=== PATIENT | male | born 1945 | race Caucasian/White ===

== ENCOUNTER 2020-09-25 07:26 | Day surgery (SDC) | payer MEDICARE, BC ==
[~2020-09-25] VITALS: Ht 185.4 cm; Wt 95.6 kg
[~2020-09-25 07:26] MED LIST: ACYC400 PO; ALLO100 PO; AMLO5 PO; AMLODIPINE BESYL5 MG PO; ASPI81CH PO; ASPIR 8181 M1 PO; BLOOD PRESSURE MEDS; CALCAVITD PO; CALCIUM PO; CHEMO; CYCLOPHOSPHAMIDE PO; ERGO400 PO; FISH OIL 1,2001 EAC1 PO; FOLI400 PO; FURO40 PO; GLIP5 PO; METTREX2.5 PO; NYSTATIN; OMEP40CA12 PO; PANT40 PO; PRED20 PO; SIMV10 PO; SODCHL1 PO; SULTRIDS PO; SYMBACORT INH; ZOCOR20 MG PO; ZOLP10 PO; norvasc PO
[2020-09-25] MEDS ORDERED: CALCIUM 600 +1 EA11 PO (07:57)
--- NOTE | 2020-09-25 08:00 | NUR ---
History, Chart, Medications and Allergies reviewed before start of procedure. Patient confirms NPO status and agrees with scheduled surgery. Patient States Post-Procedure ride home has been arranged.
--- NOTE | 2020-09-25 09:08 | NUR ---
09/25/20 0908 Isabel Ortiz History, Chart, Medications and Allergies reviewed before start of procedure. Patient confirms NPO status and agrees with scheduled surgery. 3-LEAD EKG REVIEWED WITH PHYSICIAN PRIOR TO START OF PROCEDURE. MONITOR INTACT WITH CONTINUOUS PULSE OXIMETRY AND INTERMITTENT BP. PATIENT DETERMINED TO BE ASA APPROPRIATE FOR PROPOFOL SEDATION PRIOR TO START OF PROCEDURE BY . Bite Block Placed and removed at end of case.
--- NOTE | 2020-09-25 09:37 | NUR ---
REPORT FROM DOMI SOARES RN. PATIENT REQUESTING TO GO HOME.
--- NOTE | 2020-09-25 09:54 | NUR ---
Patient up to Ambulate independently. Gait steady. Discharge instructions reviewed with patient. Patient verbalizes understanding. Copy given to patient to take home. Patient States Post-Procedure ride home has been arranged. Discharged via wheelchair to private car for ride home. ALL BELONGINGS INCLUDING HEARING AIDS AND GLASSES RETURNED TO PATIENT.
== END 2020-09-25 22:41 | disposition home or self-care (01) ==
LOC: ORSCMMR 07:26 → ORD 08:30 → ORSCMMR 22:41
PROVIDERS: Internal Medicine Gastroenterology
PROC: 0DB78ZX Excision of Stomach, Pylorus, Via Natural or Artificial Opening Endoscopic, Diagnostic (ICD-10-PCS; principal; 2020-09-25 08:30)
PROC: 0DB48ZX Excision of Esophagogastric Junction, Via Natural or Artificial Opening Endoscopic, Diagnostic (ICD-10-PCS; principal; 2020-09-25 08:30)
PROC: 0DB98ZX Excision of Duodenum, Via Natural or Artificial Opening Endoscopic, Diagnostic (ICD-10-PCS; principal; 2020-09-25 08:30)
DX: R10.13 Epigastric pain (principal); K21.9 Gastro-esophageal reflux disease without esophagitis; K29.80 Duodenitis without bleeding; R10.12 Left upper quadrant pain; I10 Essential (primary) hypertension; E78.00 Pure hypercholesterolemia, unspecified; Z86.73 Personal history of transient ischemic attack (TIA), and cerebral infarction without residual deficits; Z79.899 Other long term (current) drug therapy; Z79.82 Long term (current) use of aspirin
CPT/HCPCS: 88305; 88312; 88342; A9270; J2704; J7120

== ENCOUNTER 2021-04-29 14:17 | Emergency (ER) | payer MEDICARE, BC ==
[~2021-04-29] VITALS: Ht 185.4 cm; Wt 95.2 kg
[~2021-04-29 14:17] MED LIST changes: +CALCIUM 600 +1 EA11 PO
[2021-04-29 15:15] LABS: BASOPHILS ABSOLUTE AUTO 0.08 K/mm3 (0.00-0.23); BASOPHILS PERCENT AUTO 1 % (0-2); EOSINOPHILS ABSOLUTE AUTO 0.25 K/mm3 (0.00-0.68); EOSINOPHILS PERCENT AUTO 3 % (0-6); Hematocrit 43.9 % (37.0-53.0); Hemoglobin 14.8 g/dL (13.5-17.5); IMMATURE GRAN ABSOLUTE AUTO 0.03 K/mm3 (0.00-0.10); IMMATURE GRAN PERCENT AUTO 0 % (0-1); LYMPHOCYTES ABSOLUTE AUTO 2.16 K/mm3 (0.84-5.20); LYMPHOCYTES PERCENT AUTO 27 % (21-46); MONOCYTES ABSOLUTE AUTO 0.55 K/mm3 (0.16-1.47); MONOCYTES PERCENT AUTO 7 % (4-13); Mean Corpuscular HGB 29.7 pg (26.0-34.0); Mean Corpuscular HGB Conc 33.7 g/dL (31.5-36.5); Mean Corpuscular Volume 88 fL (80-100); Mean Platelet Volume 9.5 fL (9.1-12.4); NEUTROPHILS ABSOLUTE AUTO 4.87 K/mm3 (1.96-9.15); NEUTROPHILS PERCENT AUTO 61 % (41-73); Platelet Count 250 K/mm3 (150-400); RDW Coefficient Variation 13.3 % (11.7-14.2); RDW Standard Deviation 42.9 fL (35.1-46.3); Red Blood Cell Count 4.99 M/mm3 (4.30-5.90); White Blood Cell Count 7.94 K/mm3 (4.00-11.30)
[2021-04-29 15:28] LABS: Alanine Aminotransfer (ALT/SGP 32 U/L (12-78); Albumin, Blood 3.4 g/dL (3.4-5.0); Albumin/Globulin Ratio 0.9 (0.8-1.8); Alk Phos 66 U/L (50-136); Anion Gap 4 mmol/L (6-16); Aspartate Aminotrans (AST/SGOT 25 U/L (12-37); Bilirubin, Total 0.7 mg/dL (0.1-1.0); Blood Urea Nitrogen 40 mg/dL (8-24); Bun/Creatinine Ratio 17.9 (12.0-20.0); CO2, Blood 28 mmol/L (21-32); Calcium, Blood 9.7 mg/dL (8.5-10.1); Chloride, Blood 109 mmol/L (98-108); Creatinine, Blood 2.23 mg/dL (0.60-1.20); Globulin, Blood 3.6 g/dL (2.2-4.0); Glomerular Filtration Rate 29 (60-); Glucose, Blood 122 mg/dL (70-99); Potassium, Blood 4.5 mmol/L (3.5-5.5); Sodium, Blood 141 mmol/L (136-145); Troponin I <0.015 ng/mL (0.000-0.040)
[2021-04-29] MEDS ORDERED: FAMO20 PO (20:34)
== END 2021-04-29 20:38 | disposition home or self-care (01) ==
LOC: ER 14:17
PROVIDERS: Emergency Medicine
DX: R07.9 Chest pain, unspecified (principal); Z79.899 Other long term (current) drug therapy; Z79.82 Long term (current) use of aspirin; N18.4 Chronic kidney disease, stage 4 (severe); Z87.891 Personal history of nicotine dependence; M06.9 Rheumatoid arthritis, unspecified
CPT/HCPCS: 71045; 80053; 83690; 83880; 84484; 85025; 93005; 93010; 99285-25; A9270

== ENCOUNTER 2023-03-03 11:21 | Observation (INO) | payer MEDICARE, BC ==
[~2023-03-03] VITALS: Ht 185.4 cm; Wt 100.0 kg
[~2023-03-03 11:21] MED LIST changes: +FAMO20 PO
[2023-03-03 12:07] LABS: BASOPHILS ABSOLUTE AUTO 0.06 K/mm3 (0.00-0.23); BASOPHILS PERCENT AUTO 1 % (0-2); EOSINOPHILS ABSOLUTE AUTO 0.28 K/mm3 (0.00-0.68); EOSINOPHILS PERCENT AUTO 4 % (0-6); Hematocrit 44.4 % (37.0-53.0); IMMATURE GRAN ABSOLUTE AUTO 0.01 K/mm3 (0.00-0.10); IMMATURE GRAN PERCENT AUTO 0 % (0-1); LYMPHOCYTES ABSOLUTE AUTO 1.76 K/mm3 (0.84-5.20); LYMPHOCYTES PERCENT AUTO 28 % (21-46); MONOCYTES ABSOLUTE AUTO 0.43 K/mm3 (0.16-1.47); MONOCYTES PERCENT AUTO 7 % (4-13); Mean Corpuscular HGB 29.9 pg (26.0-34.0); Mean Corpuscular HGB Conc 33.8 g/dL (31.5-36.5); Mean Corpuscular Volume 88 fL (80-100); Mean Platelet Volume 9.4 fL (9.1-12.4); NEUTROPHILS ABSOLUTE AUTO 3.82 K/mm3 (1.96-9.15); NEUTROPHILS PERCENT AUTO 60 % (41-73); Platelet Count 201 K/mm3 (150-400); RDW Coefficient Variation 13.3 % (11.7-14.2); RDW Standard Deviation 43.1 fL (35.1-46.3); Red Blood Cell Count 5.02 M/mm3 (4.30-5.90); White Blood Cell Count 6.36 K/mm3 (4.00-11.30)
[2023-03-03 12:25] LABS: Albumin/Globulin Ratio 1.1 (0.8-1.8); Bilirubin, Total 1.1 mg/dL (0.1-1.0); Bun/Creatinine Ratio 14.1 (12.0-20.0); Calcium, Blood 9.5 mg/dL (8.5-10.1); Creatinine, Blood 2.41 mg/dL (0.60-1.20); Globulin, Blood 3.7 g/dL (2.2-4.0); Potassium, Blood 4.7 mmol/L (3.5-5.5); Total Protein, Blood 7.7 g/dL (6.4-8.2)
[2023-03-03] MEDS ORDERED: ARTIFICIAL TEA1 EAC1 BOTHEYES (22:27)
[2023-03-03] MEDS ORDERED: CENTRUM SILVER1 EAC2 PO (22:27)
[2023-03-03] MEDS ORDERED: OMEGA-3-FISH O1 EAC3 PO (22:28)
[2023-03-03] MEDS ORDERED: TRAZ50 PO (22:29)
[2023-03-03] MEDS ORDERED: CALCIUM CARBON500 M4 PO (22:29)
[2023-03-03] MEDS ORDERED: CARB10OTL BOTHEARS (22:30)
[2023-03-04 04:30] VITALS: BP 123/89
--- NOTE | 2023-03-04 06:06 | NUR ---
SHIFT SUMMARY VSS ADMIT DONE, NO C/O PAIN NO REOCCURING CHEST PAIN OR DISTRESS, PT ANXIOUS AND WANTING TO FIND OUT WHY HAVING THESE PROBLEMS, CORTISOL BLOODS TEST TO BE DONE IN THE MORNING WHEN DAY SHIFT ARRIVES, VAULT PERSON DOESNT PREFORM TEST. PT INDEEPENDENT IN RM AND WILL CALL IF NEEDING ANYTHING.
[2023-03-04 07:31] VITALS: BP 150/83
[2023-03-04 08:14] LABS: BASOPHILS ABSOLUTE AUTO 0.08 K/mm3 (0.00-0.23); BASOPHILS PERCENT AUTO 1 % (0-2); EOSINOPHILS ABSOLUTE AUTO 0.33 K/mm3 (0.00-0.68); EOSINOPHILS PERCENT AUTO 6 % (0-6); Hematocrit 41.4 % (37.0-53.0); Hemoglobin 14.1 g/dL (13.5-17.5); IMMATURE GRAN ABSOLUTE AUTO 0.01 K/mm3 (0.00-0.10); IMMATURE GRAN PERCENT AUTO 0 % (0-1); LYMPHOCYTES ABSOLUTE AUTO 1.69 K/mm3 (0.84-5.20); LYMPHOCYTES PERCENT AUTO 28 % (21-46); MONOCYTES ABSOLUTE AUTO 0.56 K/mm3 (0.16-1.47); MONOCYTES PERCENT AUTO 9 % (4-13); Mean Corpuscular HGB 29.7 pg (26.0-34.0); Mean Corpuscular HGB Conc 34.1 g/dL (31.5-36.5); Mean Corpuscular Volume 87 fL (80-100); Mean Platelet Volume 9.4 fL (9.1-12.4); NEUTROPHILS ABSOLUTE AUTO 3.34 K/mm3 (1.96-9.15); NEUTROPHILS PERCENT AUTO 56 % (41-73); Platelet Count 191 K/mm3 (150-400); RDW Coefficient Variation 13.2 % (11.7-14.2); RDW Standard Deviation 42.5 fL (35.1-46.3); Red Blood Cell Count 4.74 M/mm3 (4.30-5.90); White Blood Cell Count 6.01 K/mm3 (4.00-11.30)
[2023-03-04 08:17] LABS: Albumin, Blood 3.4 g/dL (3.4-5.0); Albumin/Globulin Ratio 1.1 (0.8-1.8); Bilirubin, Total 0.9 mg/dL (0.1-1.0); Bun/Creatinine Ratio 14.8 (12.0-20.0); Calcium, Blood 8.9 mg/dL (8.5-10.1); Creatinine, Blood 2.16 mg/dL (0.60-1.20); Potassium, Blood 4.5 mmol/L (3.5-5.5); Total Protein, Blood 6.4 g/dL (6.4-8.2)
[2023-03-04 15:52] VITALS: BP 144/86
--- NOTE | 2023-03-04 19:10 | NUR ---
DISCHARGE NOTE: DISCUSSED DISCHARGE WITH PATIENT AND HIS AT BEDSIDE. IV AND TELEMETRY WAS REMOVED, PATIENT DRESSED, AND BELONGINGS COLLECTED. TRANSFER VIA WHEELCHAIR WAS OFFERED, BUT PATIENT DECLINED. HIM AND HIS AMBULATED WITHOUT DIFFICULTY OUT OF THE HOSPITAL. NO SIGNS OR SYMPTOMS OF DISTRESS DURING DISCHARGE.
== END 2023-03-04 18:25 | disposition home or self-care (01) ==
LOC: ER 11:21 → MEDS 11:25 → SURS 11:25 → MEDS 18:30
PROVIDERS: Physician Assistant; ADMIT Internal Medicine
DX: I20.9 Angina pectoris, unspecified (principal); I49.9 Cardiac arrhythmia, unspecified; I12.9 Hypertensive chronic kidney disease with stage 1 through stage 4 chronic kidney disease, or unspecified chronic kidney disease; N18.4 Chronic kidney disease, stage 4 (severe); M06.9 Rheumatoid arthritis, unspecified; E78.5 Hyperlipidemia, unspecified; M10.9 Gout, unspecified; Z87.891 Personal history of nicotine dependence; Z79.899 Other long term (current) drug therapy; Z79.82 Long term (current) use of aspirin; Z86.010 Personal history of colon polyps; Z86.73 Personal history of transient ischemic attack (TIA), and cerebral infarction without residual deficits
CPT/HCPCS: 36415; 71046; 71260; 78452; 80053; 80400; 82533; 83880; 84484; 85025; 85379; 93005; 93010; 93017; 96374; 99285-25; A9270; A9500; G0378; J0706; J0834; J2785; J7030; J7120; Q9967

== ENCOUNTER 2024-03-21 12:11 | Inpatient (IN) | payer MEDICARE, BC ==
[~2024-03-21] VITALS: Ht 185.4 cm; Wt 100.3 kg
[~2024-03-21 12:11] MED LIST changes: +ARTIFICIAL TEA1 EAC1 BOTHEYES; +CALCIUM CARBON500 M4 PO; +CARB10OTL BOTHEARS; +CENTRUM SILVER1 EAC2 PO; +OMEGA-3-FISH O1 EAC3 PO; +TRAZ50 PO
[2024-03-21] MEDS ORDERED: Ondansetron HCl 2 MG / ML 2ML Vial IV PRN (13:10)
[2024-03-21] MEDS ORDERED: FentaNYL Citrate 50 MCG/ML 2 ML Injection IV ONE (13:15)
[2024-03-21] MEDS ORDERED: Nitroglycerin 0.4 MG SUBL SL PRN (13:15)
[2024-03-21 13:20] LABS: BASOPHILS ABSOLUTE AUTO 0.09 K/mm3 (0.00-0.23); BASOPHILS PERCENT AUTO 1 % (0-2); EOSINOPHILS ABSOLUTE AUTO 0.05 K/mm3 (0.00-0.68); EOSINOPHILS PERCENT AUTO 0 % (0-6); Hematocrit 42.9 % (37.0-53.0); Hemoglobin 14.7 g/dL (13.5-17.5); IMMATURE GRAN ABSOLUTE AUTO 0.06 K/mm3 (0.00-0.10); IMMATURE GRAN PERCENT AUTO 0 % (0-1); LYMPHOCYTES ABSOLUTE AUTO 1.46 K/mm3 (0.84-5.20); LYMPHOCYTES PERCENT AUTO 10 % (21-46); MONOCYTES PERCENT AUTO 5 % (4-13); Mean Corpuscular HGB 30.2 pg (26.0-34.0); Mean Corpuscular HGB Conc 34.3 g/dL (31.5-36.5); Mean Corpuscular Volume 88 fL (80-100); Mean Platelet Volume 9.4 fL (9.1-12.4); NEUTROPHILS ABSOLUTE AUTO 12.23 K/mm3 (1.96-9.15); NEUTROPHILS PERCENT AUTO 84 % (41-73); Platelet Count 246 K/mm3 (150-400); RDW Standard Deviation 42.3 fL (35.1-46.3); Red Blood Cell Count 4.86 M/mm3 (4.30-5.90); White Blood Cell Count 14.59 K/mm3 (4.00-11.30)
[2024-03-21 13:44] LABS: Albumin, Blood 3.8 g/dL (3.4-5.0); Albumin/Globulin Ratio 1.1 (0.8-1.8); Bilirubin, Total 1.3 mg/dL (0.1-1.0); Bun/Creatinine Ratio 14.7 (12.0-20.0); Calcium, Blood 9.6 mg/dL (8.5-10.1); Creatinine, Blood 2.32 mg/dL (0.60-1.20); Globulin, Blood 3.4 g/dL (2.2-4.0); Potassium, Blood 4.2 mmol/L (3.5-5.5); Total Protein, Blood 7.2 g/dL (6.4-8.2)
[2024-03-21 15:56] LABS: Anti-Xa UFH, PHA Monitoring <0.10 IU/mL; International Normalized Ratio 0.98; Prothrombin Time Results 10.5 Sec (9.7-11.5)
[2024-03-21] MEDS ORDERED: FentaNYL Citrate 50 MCG/ML 2 ML Injection ONE (15:58)
[2024-03-21] MEDS ORDERED: NS 2,000 ML IV ONE (15:58)
[2024-03-21] MEDS ORDERED: Heparin Sodium 1000 Units/ML 10ML MDV ONE (15:58)
[2024-03-21] MEDS ORDERED: Midazolam HCl 1MG / ML 2ML Vial ONE (15:58)
[2024-03-21] MEDS ORDERED: Nitroglycerin 2 MG/20 ML BTL ONE (15:59)
[2024-03-21] MEDS ORDERED: NS 250 ML IV ONE (16:00)
[2024-03-21] MEDS ORDERED: Tirofiban HCL Monohydrate 3.75 MG/15 ML Vial ONE (16:00)
[2024-03-21] MEDS ORDERED: Verapamil HCL 2.5 MG/ML 2ML Injection ONE (16:01)
[2024-03-21] MEDS ORDERED: Heparin Sodium,Porcine/0.5 NS 500 ML IV SCH (16:05)
[2024-03-21] MEDS ORDERED: HYDCOR10 PO (16:05)
[2024-03-21] MEDS ORDERED: Clopidogrel Bisulfate 300 MG Cap ONE (17:02)
[2024-03-21] MEDS ORDERED: NS 1,000 ML IV SCH (17:20)
[2024-03-21 17:27] VITALS: BP 131/106
--- NOTE | 2024-03-21 17:33 | NUR ---
arrival tp pcu patient arrived to pcu on pcu bed. bedside report done with heart center nurse. right radial site with tr band in place with 11cc at 1715, site is nontender, no bleeding or hematoma. vitals stable. patient denies chest pain/pressure, pain or shortness of breath.
[2024-03-21 19:00] VITALS: BP 125/63
--- NOTE | 2024-03-21 19:04 | NUR ---
PT ARRIVED TO [facility] FROM [facility] AT APROX 1720. R RADIAL SITE WNL. PT A&OX4, ORIENTED TO ROOM, CALL LIGHT AND UNIT ROUTINES. PT/ EDUCATED ON TR BAND USE, DEFLATION, AND ARM BOARD. VERBALIZING UNDERSTANDING TO CALL RN WITH ANY BLEEDING OR INCREASED PAIN. ADMISSION COMPLETED. DR NOTIFIED FOR FURTHER ORDERS. IV FLUID HUNG PER ORDERS. PT RESTING QUIETLY IN BED, NO COMPLAINTS. SEE DOCUMENTED VS. CALL LIGHT IN REACH. REPORT GIVEN TO JETT SARAH FOR NOC JEANCARLOS.
[2024-03-21 19:36] VITALS: BP 150/65
[2024-03-21 20:51] LABS: Magnesium, Blood 2.1 mg/dL (1.6-2.4)
[2024-03-21 20:53] LABS: Thyroid Stimulating Hormone 1.51 uIU/mL (0.360-4.800)
--- NOTE | 2024-03-21 20:54 | NUR ---
ASSUMPTION OF CARE PT A/Ox4 AND COOPERATIVE WITH CARE. ANSWERS QUESTIONS APPROPRIATELY AND ABLE TO MAKE HIS NEEDS KNOWN. DENIES ANY N/T OR SENSATION LOSS. DENIES C/O WEAKNESS. CARDIAC, REMAINS IN SR RANGING 60-70'S WITH NO COMPLAINTS OF CP, PRESSURE OR DIZZINESS. SBP STABLE RANGING 150'S. TR BAND IN PLACE ON RIGHT RADIAL ACCESS SITE. NO OOZING, HEMATOMA, OR SITE TENDERNESS NOTED. HAND SLIGHLY COOL TO THE TOUCH, BUT DENIES ANY N/T. PULSES PALPIBLE ABOVE AND BELOW SITE. ARMBOARD IN PLACE. RESPIRATORY, MAINTAINS SPO2 >95% ON RA. DENIES ANY SOB OR DYSPNEA. GI/, DENIES ANY N/V/D OR ABD TENDERNESS. ABLE TO AMBULATE TO BATHROOM WITH SBA DUE TO LINE MANAGEMENT. SKIN OVERALL C/D/I EXCEPT NOTICBLE GREASE STAINS NOTED ON BILAT HAND. 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 1xPIV NOTED ON RAC, FLUSHES AND DRAWS BACK WELL. 1xPIV NOTED ON L WRIST INFUSING PER EMAR. WILL CONTINUE TO PROCESS MD ORDERS. SEE SHIFT ASSESSMENT FOR MORE DETAILS. DAX BOWEN OF THIS NOTE.
[2024-03-21] MEDS ORDERED: Atorvastatin 40 MG Tab PO SCH (21:00)
--- NOTE | 2024-03-21 22:30 | NUR ---
UPDATE PT C/O TO THIS RN ABOUT 4/10 CHEST SORENESS THAT LAST FOR BRIEF AMOUNT OF TIME AND THEN SHORTLY WENT WAY. DENIES ANY RADIATION OR PAIN SIMILAR TO PAIN FELT BEFORE ADMISSION. DR. RODRIGUEZ NOTIFIED WITH ORDERS TO PERFORM EKG AT THIS TIME. TR BAND RECOVERED AT THIS TIME AND RIGHT RADIAL ACCESS SITE WNL.
[2024-03-21 23:55] VITALS: BP 132/71
[2024-03-22 03:47] VITALS: BP 159/85
[2024-03-22 04:17] LABS: BASOPHILS ABSOLUTE AUTO 0.06 K/mm3 (0.00-0.23); BASOPHILS PERCENT AUTO 1 % (0-2); EOSINOPHILS ABSOLUTE AUTO 0.18 K/mm3 (0.00-0.68); EOSINOPHILS PERCENT AUTO 2 % (0-6); Hemoglobin 13.5 g/dL (13.5-17.5); IMMATURE GRAN ABSOLUTE AUTO 0.03 K/mm3 (0.00-0.10); IMMATURE GRAN PERCENT AUTO 0 % (0-1); LYMPHOCYTES ABSOLUTE AUTO 2.13 K/mm3 (0.84-5.20); LYMPHOCYTES PERCENT AUTO 24 % (21-46); MONOCYTES ABSOLUTE AUTO 0.76 K/mm3 (0.16-1.47); MONOCYTES PERCENT AUTO 9 % (4-13); Mean Corpuscular HGB 29.9 pg (26.0-34.0); Mean Corpuscular HGB Conc 33.8 g/dL (31.5-36.5); Mean Corpuscular Volume 89 fL (80-100); Mean Platelet Volume 9.6 fL (9.1-12.4); NEUTROPHILS ABSOLUTE AUTO 5.81 K/mm3 (1.96-9.15); NEUTROPHILS PERCENT AUTO 65 % (41-73); Platelet Count 212 K/mm3 (150-400); RDW Coefficient Variation 13.1 % (11.7-14.2); RDW Standard Deviation 42.6 fL (35.1-46.3); Red Blood Cell Count 4.52 M/mm3 (4.30-5.90); White Blood Cell Count 8.97 K/mm3 (4.00-11.30)
[2024-03-22 04:46] LABS: Albumin, Blood 3.3 g/dL (3.4-5.0); Albumin/Globulin Ratio 1.1 (0.8-1.8); Bilirubin, Total 0.8 mg/dL (0.1-1.0); Bun/Creatinine Ratio 14.1 (12.0-20.0); Calcium, Blood 8.6 mg/dL (8.5-10.1); Creatinine, Blood 2.2 mg/dL (0.60-1.20); Potassium, Blood 4.3 mmol/L (3.5-5.5); Total Protein, Blood 6.3 g/dL (6.4-8.2)
--- NOTE | 2024-03-22 05:08 | NUR ---
SHIFT SUMMARY NO ACUTE CHANGES SINCE ASSUMPTION OF CARE/UPDATE NOTES. CONTINUES TO DENY ANY CP, PRESSURE OR DIZZINESS SINCE INITAL EPISODE EARLY IN THE SHIFT. SEE UPDATE NOTE FOR DETAILS. NO NEW ORDERS AT THIS TIME, WILL REPORT TO ONCOMING RN. DAX BOWEN OF THIS NOTE.
[2024-03-22] MEDS ORDERED: Pantoprazole Sodium 40 MG Injection IV SCH (06:00)
[2024-03-22 07:55] VITALS: BP 105/93
[2024-03-22] MEDS ORDERED: Carvedilol 6.25 MG Tab PO SCH ×2 (08:00→17:00)
--- NOTE | 2024-03-22 08:00 | NUR ---
ASSUMPTION OF CARE: PATIENT RESTING COMFORTABLY IN BED. A&O AND ALL VITAL SIGNS STABLE ON ROOM AIR. NO COMPLAINTS OF DISCOMFORT, SOB, OR CHEST PAIN. R RADIAL CATH SITE CLEAN/DRY/INTACT WITH ADEQUATE DISTAL CIRCULATION. REPEAT ECHO ORDERED & PENDING. DR. RIOJAS AT , STATES PATIENT COULD D/C THIS AFTERNOON IF ECHO RESULTS WNL.
[2024-03-22] MEDS ORDERED: Hydrocortisone 20 MG Tab PO SCH (09:00)
[2024-03-22] MEDS ORDERED: Aspirin 81 MG Chew PO SCH (09:00)
[2024-03-22] MEDS ORDERED: Allopurinol 100 MG Tab PO SCH (09:00)
[2024-03-22] MEDS ORDERED: AmLODIPine Besylate 5 MG Tab PO SCH ×2 (09:00)
[2024-03-22] MEDS ORDERED: Clopidogrel Bisulfate 75 MG Tab PO SCH (09:00)
[2024-03-22 11:35] VITALS: BP 111/75
[2024-03-22] MEDS ORDERED: ATOR40TA PO (12:58)
[2024-03-22] MEDS ORDERED: CLOP75 PO (12:59)
[2024-03-22] MEDS ORDERED: NITR.4SL SL (13:00)
[2024-03-22] MEDS ORDERED: 1/2 NS 250ml250 ML (13:00)
--- NOTE | 2024-03-22 14:04 | NUR ---
Discharge: Dr. Doran came back to discuss ECHO results with the patient and clear him for discharge. I talked with MD about the patients heart rate dropping down into the high 30s low 40s after he was given Carvedilol. Per Dr. Doran patient is to take ASA, Plavix, and Atorvstatin at DC, this change is communicated to the resident care team. DC orders were placed and discharge paperwork was reviewed with the patient and his . [facility] Patient ambulated out with his .
[2024-03-23] MEDS ORDERED: Losartan Potassium 25 MG Tab PO SCH (09:00)
[2024-03-23] MEDS ORDERED: Empagliflozin 10 MG TAB PO SCH (09:00)
[2024-03-23] MEDS ORDERED: Furosemide 20 MG Tab PO SCH (09:00)
== END 2024-03-22 14:08 | disposition home or self-care (01) | DRG 322 ==
LOC: ER 12:11 → PCU 17:39
PROVIDERS: Family Medicine; Internal Medicine Interventional Cardiology; Student in an Organized Health Care Education/Training Program; ADMIT Internal Medicine
PROC: 027034Z Dilation of Coronary Artery, One Artery with Drug-eluting Intraluminal Device, Percutaneous Approach (ICD-10-PCS; principal; 2024-03-21)
PROC: B2111ZZ Fluoroscopy of Multiple Coronary Arteries using Low Osmolar Contrast (ICD-10-PCS; 2024-03-21)
DX: I21.4 Non-ST elevation (NSTEMI) myocardial infarction (principal); N18.4 Chronic kidney disease, stage 4 (severe); I12.9 Hypertensive chronic kidney disease with stage 1 through stage 4 chronic kidney disease, or unspecified chronic kidney disease; M06.9 Rheumatoid arthritis, unspecified; E78.5 Hyperlipidemia, unspecified; M10.9 Gout, unspecified; I25.10 Atherosclerotic heart disease of native coronary artery without angina pectoris; K29.70 Gastritis, unspecified, without bleeding; Z79.82 Long term (current) use of aspirin; Z79.899 Other long term (current) drug therapy; I25.2 Old myocardial infarction; Z90.49 Acquired absence of other specified parts of digestive tract; Z87.891 Personal history of nicotine dependence
CPT/HCPCS: 36415; 71275; 74175; 76937; 80053; 83690; 83735; 84443; 84484; 85025; 85347; 85520; 85610; 85730; 93005; 93010; 93306; 93454; 96374-59; 96375-59; 99152; 99153; 99285-25; A9270; C1725; C1769; C1874; C1887; C1894; C9600; J1644; J2250; J2405; J2470; J3010; J3246; J7030; J7050; Q9967

== ENCOUNTER → 2024-05-22 | Outpatient (CLI) | payer BC ==
[~2024-05-22] MED LIST changes: +1/2 NS 250ml250 ML; +ATOR40TA PO; +CLOP75 PO; +HYDCOR10 PO; +NITR.4SL SL
[2024-05-22 11:08] LABS: Protein, Urine Quantitative 28.4 mg/dL (0.0-11.9)
== END | disposition home or self-care (01) ==
LOC: LAB 09:00 → LAB SHORT 09:00 → LAB FUT 05-19 11:20
PROVIDERS: Internal Medicine Nephrology
DX: N18.30 Chronic kidney disease, stage 3 unspecified (principal); D63.1 Anemia in chronic kidney disease; N25.81 Secondary hyperparathyroidism of renal origin; E55.9 Vitamin D deficiency, unspecified; E29.1 Testicular hypofunction; R76.9 Abnormal immunological finding in serum, unspecified; R94.5 Abnormal results of liver function studies; R94.6 Abnormal results of thyroid function studies
CPT/HCPCS: 81050; 82043; 82570; 84156

== ENCOUNTER 2024-08-17 09:58 | Day surgery (SDC) | payer OTHER ==
[~2024-08-17] VITALS: Ht 188 cm; Wt 98.7 kg
[~2024-08-17 09:58] MED LIST changes: +Povidone-Iodine 450 DROP/30 ML Solution ONE; +Tetracaine HCl/Pf 0.5% Opth Soln 4 ml ONE; +Triamcinolone Inj Susp 40 MG / ML 1ML Vial ONE
[2024-08-17] MEDS ORDERED: Diazepam 10 MG Tab ONE (10:30)
[2024-08-17] MEDS ORDERED: CARV6.25 PO (10:46)
--- NOTE | 2024-08-17 11:06 | NUR ---
08/17/24 1106 Alis Cavazos PT DENIES ANY ANXIETY. REPORTS 0/10 ANXIETY LEVEL. BP WAS ELEVATED AND OUT OF RANGE FOR SEVERAL BP READINGS. WE HAD PATIENT LAY DOWN PARTIALLY, CLOSE HIS EYES, RELAX, AND RECHECKED BP AND WERE ABLE TO GET BP READING WITHIN RANGE TO PROCEED WITH CATARACT SURGERY WITH DR BOYD IN ROOM. OKAY TO PROCEED WITH VALIUM ADMINISTRATION. 10MG PO VALIUM GIVEN AT 1059.
[2024-08-17] MEDS ORDERED: Lidocaine HCl/Pf 1% 5 ML VIAL XX ONE (11:39)
[2024-08-17] MEDS ORDERED: BSS PLUS/EPINEPHRINE IRRIGATION SOLUTION 500 ML IR ONE (11:39)
[2024-08-17] MEDS ORDERED: Moxifloxacin HCL 0.5 MG/0.1 ML 0.4MLSYR RIGHTEYE ONE (11:39)
--- NOTE | 2024-08-17 11:43 | NUR ---
08/17/24 1143 Demetrice Heath 1135 BP 127/84 P 65 02 100
[2024-08-17 11:58] VITALS: BP 136/69
== END 2024-08-17 12:05 | disposition home or self-care (01) ==
LOC: ORSCSDS 09:58
PROVIDERS: Ophthalmology
PROC: 08RJ3JZ Replacement of Right Lens with Synthetic Substitute, Percutaneous Approach (ICD-10-PCS; principal; 2024-08-17 11:30)
DX: H25.813 Combined forms of age-related cataract, bilateral (principal); H52.201 Unspecified astigmatism, right eye; H40.1190 Primary open-angle glaucoma, unspecified eye, stage unspecified; H04.123 Dry eye syndrome of bilateral lacrimal glands; N18.4 Chronic kidney disease, stage 4 (severe); I12.9 Hypertensive chronic kidney disease with stage 1 through stage 4 chronic kidney disease, or unspecified chronic kidney disease; E78.5 Hyperlipidemia, unspecified; E78.00 Pure hypercholesterolemia, unspecified; I21.9 Acute myocardial infarction, unspecified; Z87.891 Personal history of nicotine dependence; Z79.899 Other long term (current) drug therapy
CPT/HCPCS: A9270; J2003; J3301; V2632

== ENCOUNTER 2024-08-24 08:58 | Day surgery (SDC) | payer OTHER ==
[~2024-08-24] VITALS: Ht 188 cm; Wt 99.4 kg
[~2024-08-24 08:58] MED LIST changes: +Balanced Salt Epinephrine Irrigation Solution 500 mL IR SCH; +CARV6.25 PO; +Diazepam 5 MG Tab PO PRN; +Diazepam 5 MG Tab PO SCH; +Lidocaine HCl/Pf 1% 5 ML VIAL XX SCH; +Moxifloxacin HCL 0.5 MG/0.1 ML 0.4MLSYR LEFTEYE SCH; +Moxifloxacin HCL 0.5 MG/0.1 ML 0.4MLSYR RIGHTEYE SCH; +Ondansetron 4 MG SoluTab MM PRN; +PHENYLEPHRINE\\TROPICAMIDE\\TETRACAINE OPHTHALMIC DILATING SOLN LEFTEYE PRN; +PHENYLEPHRINE\\TROPICAMIDE\\TETRACAINE OPHTHALMIC DILATING SOLN RIGHTEYE PRN; +Povidone-Iodine 450 DROP/30 ML Solution LEFTEYE SCH; +Povidone-Iodine 450 DROP/30 ML Solution RIGHTEYE SCH; +Triamcinolone Inj Susp 40 MG / ML 1ML Vial INJ SCH
[2024-08-24] MEDS ORDERED: Diazepam 10 MG Tab ONE (09:24)
--- NOTE | 2024-08-24 09:57 | NUR ---
08/24/24 0957 SANYA STATON BP ELEV[address] BOYD AWARE NO NEW ORDERS. IT IS WITHIN PARAMETERS
--- NOTE | 2024-08-24 10:34 | NUR ---
08/24/24 1034 Kisha Levin BP-141/65 P-66 SPO2-100% 10L BLOW BY O2
[2024-08-24 10:49] VITALS: BP 159/72
[2024-08-25] MEDS ORDERED: Balanced Salt Epinephrine Irrigation Solution 500 mL IR SCH (06:00)
[2024-08-25] MEDS ORDERED: Triamcinolone Inj Susp 40 MG / ML 1ML Vial INJ SCH (06:00)
[2024-08-25] MEDS ORDERED: Diazepam 5 MG Tab PO SCH (06:00)
[2024-08-25] MEDS ORDERED: Povidone-Iodine 450 DROP/30 ML Solution LEFTEYE SCH (06:00)
[2024-08-25] MEDS ORDERED: PHENYLEPHRINE\\TROPICAMIDE\\TETRACAINE OPHTHALMIC DILATING SOLN LEFTEYE PRN (06:00)
[2024-08-25] MEDS ORDERED: Diazepam 5 MG Tab PO PRN (06:00)
[2024-08-25] MEDS ORDERED: Lidocaine HCl/Pf 1% 5 ML VIAL XX SCH (06:00)
[2024-08-25] MEDS ORDERED: Moxifloxacin HCL 0.5 MG/0.1 ML 0.4MLSYR LEFTEYE SCH (06:00)
== END 2024-08-24 10:54 | disposition home or self-care (01) ==
LOC: ORSCSDS 08:58
PROVIDERS: Ophthalmology
PROC: 08RK3JZ Replacement of Left Lens with Synthetic Substitute, Percutaneous Approach (ICD-10-PCS; principal; 2024-08-24 10:30)
DX: H25.812 Combined forms of age-related cataract, left eye (principal); Z96.1 Presence of intraocular lens; H52.202 Unspecified astigmatism, left eye; E78.5 Hyperlipidemia, unspecified; H04.123 Dry eye syndrome of bilateral lacrimal glands; E78.00 Pure hypercholesterolemia, unspecified; I12.9 Hypertensive chronic kidney disease with stage 1 through stage 4 chronic kidney disease, or unspecified chronic kidney disease; N18.4 Chronic kidney disease, stage 4 (severe); Z87.891 Personal history of nicotine dependence; Z79.899 Other long term (current) drug therapy
CPT/HCPCS: A9270; J3301; V2632

== ENCOUNTER 2024-11-22 07:31 | Day surgery (SDC) | payer MEDICARE, BC ==
[~2024-11-22] VITALS: Ht 185.4 cm; Wt 97.4 kg
[~2024-11-22 07:31] MED LIST changes: -Balanced Salt Epinephrine Irrigation Solution 500 mL IR SCH; -Diazepam 5 MG Tab PO PRN; -Diazepam 5 MG Tab PO SCH; -Lidocaine HCl/Pf 1% 5 ML VIAL XX SCH; -Moxifloxacin HCL 0.5 MG/0.1 ML 0.4MLSYR LEFTEYE SCH; -Moxifloxacin HCL 0.5 MG/0.1 ML 0.4MLSYR RIGHTEYE SCH; -Ondansetron 4 MG SoluTab MM PRN; -PHENYLEPHRINE\\TROPICAMIDE\\TETRACAINE OPHTHALMIC DILATING SOLN LEFTEYE PRN; -PHENYLEPHRINE\\TROPICAMIDE\\TETRACAINE OPHTHALMIC DILATING SOLN RIGHTEYE PRN; -Povidone-Iodine 450 DROP/30 ML Solution LEFTEYE SCH; -Povidone-Iodine 450 DROP/30 ML Solution ONE; -Povidone-Iodine 450 DROP/30 ML Solution RIGHTEYE SCH; -Tetracaine HCl/Pf 0.5% Opth Soln 4 ml ONE; -Triamcinolone Inj Susp 40 MG / ML 1ML Vial INJ SCH; -Triamcinolone Inj Susp 40 MG / ML 1ML Vial ONE
[2024-11-22 08:39] VITALS: BP 133/77
--- NOTE | 2024-11-22 08:59 | NUR ---
History, Chart, Medications and Allergies reviewed before start of procedure.
--- NOTE | 2024-11-22 09:24 | NUR ---
11/22/24 0923 Faviola Fowler History, Chart, Medications and Allergies reviewed before start of procedure. MONITOR INTACT WITH CONTINUOUS PULSE OXIMETRY, CONTINUOUS END TITAL CO2, 3-LEAD EKG AND INTERMITTENT BLOOD PRESSURE. O2 VIA POM INTACT THROUGHOUT SEDATION/PROCEDURE. See Anesthesia record FROM DR. BREWER
[2024-11-22 10:03] VITALS: BP 107/63
--- NOTE | 2024-11-22 10:20 | NUR ---
Patient up to Ambulate independently. Gait steady. Discharge instructions reviewed with patient. Patient verbalizes understanding. Copy given to patient to take home. Discharged via wheelchair to private car for ride home.
[2024-11-22] MEDS ORDERED: Phenylephrine HCl 100 MCG/ML-NS 10MLSYR (1MG/10ML) IV ONE (15:03)
[2024-11-22] MEDS ORDERED: Glycopyrrolate 0.2 MG/ML 5ML VIAL IV ONE (15:03)
== END 2024-11-22 10:21 | disposition home or self-care (01) ==
LOC: ORSCMMR 07:31 → ORD 09:00 → ORSCMMR 09:00
PROVIDERS: Internal Medicine Gastroenterology
PROC: 0DBH8ZX Excision of Cecum, Via Natural or Artificial Opening Endoscopic, Diagnostic (ICD-10-PCS; principal; 2024-11-22 09:00)
PROC: 0DBN8ZX Excision of Sigmoid Colon, Via Natural or Artificial Opening Endoscopic, Diagnostic (ICD-10-PCS; principal; 2024-11-22 09:00)
PROC: 0DBM8ZX Excision of Descending Colon, Via Natural or Artificial Opening Endoscopic, Diagnostic (ICD-10-PCS; principal; 2024-11-22 09:00)
DX: Z12.11 Encounter for screening for malignant neoplasm of colon (principal); Z86.0101 Personal history of adenomatous and serrated colon polyps; K63.5 Polyp of colon; D12.5 Benign neoplasm of sigmoid colon; I25.2 Old myocardial infarction; I10 Essential (primary) hypertension; E78.00 Pure hypercholesterolemia, unspecified; Z90.49 Acquired absence of other specified parts of digestive tract; M10.9 Gout, unspecified; I77.82 Antineutrophilic cytoplasmic antibody [ANCA] vasculitis; Z86.73 Personal history of transient ischemic attack (TIA), and cerebral infarction without residual deficits; Z79.02 Long term (current) use of antithrombotics/antiplatelets; Z79.82 Long term (current) use of aspirin; Z79.899 Other long term (current) drug therapy
CPT/HCPCS: 88305; J2371; J2704; J7120

== ENCOUNTER 2025-01-02 11:07 | Inpatient (IN) | payer OTHER, MEDICARE, BC ==
[~2025-01-02] VITALS: Ht 185.4 cm; Wt 95.9 kg
[~2025-01-02 11:07] MED LIST changes: +Morphine Sulfate 4 MG/1 ML Injection IV PRN
[2025-01-02] MEDS ORDERED: Nitroglycerin Patch 0.4 MG / HR TOP ONE (11:15)
[2025-01-02 11:46] LABS: BASOPHILS ABSOLUTE AUTO 0.07 K/mm3 (0.00-0.23); BASOPHILS PERCENT AUTO 1 % (0-2); EOSINOPHILS ABSOLUTE AUTO 0.32 K/mm3 (0.00-0.68); EOSINOPHILS PERCENT AUTO 5 % (0-6); Hematocrit 39.0 % (37.0-53.0); Hemoglobin 13.0 g/dL (13.5-17.5); IMMATURE GRAN ABSOLUTE AUTO 0.01 K/mm3 (0.00-0.10); IMMATURE GRAN PERCENT AUTO 0 % (0-1); LYMPHOCYTES ABSOLUTE AUTO 1.34 K/mm3 (0.84-5.20); LYMPHOCYTES PERCENT AUTO 19 % (21-46); MONOCYTES ABSOLUTE AUTO 0.56 K/mm3 (0.16-1.47); MONOCYTES PERCENT AUTO 8 % (4-13); Mean Corpuscular HGB Conc 33.3 g/dL (31.5-36.5); Mean Corpuscular Volume 90 fL (80-100); NEUTROPHILS ABSOLUTE AUTO 4.81 K/mm3 (1.96-9.15); NEUTROPHILS PERCENT AUTO 68 % (41-73); NRBC ABSOLUTE 0.00 K/mm3 (0.00-0.02); NRBC Auto 0.0 /100 WBC (0.0-0.2); Platelet Count 213 K/mm3 (150-400); RDW Coefficient Variation 13.4 % (11.7-14.2); RDW Standard Deviation 44.4 fL (35.1-46.3)
[2025-01-02 12:20] LABS: Alanine Aminotransfer (ALT/SGP 20.0 U/L (12-78); Albumin, Blood 3.7 g/dL (3.4-5.0); Albumin/Globulin Ratio 1.2 (0.8-1.8); Anion Gap 8.0 mmol/L (3-11); Aspartate Aminotrans (AST/SGOT 15.0 U/L (12-37); Bilirubin, Total 1.1 mg/dL (0.1-1.0); Blood Urea Nitrogen 40.0 mg/dL (8-24); CO2, Blood 26.0 mmol/L (21-32); Calcium, Blood 8.7 mg/dL (8.5-10.1); Chloride, Blood 112.0 mmol/L (98-108); Creatinine, Blood 2.23 mg/dL (0.60-1.20); Globulin, Blood 3.2 g/dL (2.2-4.0); Glucose, Blood 110.0 mg/dL (70-99); Potassium, Blood 4.6 mmol/L (3.5-5.5); Sodium, Blood 141.0 mmol/L (136-145); Total Protein, Blood 6.9 g/dL (6.4-8.2)
[2025-01-02] MEDS ORDERED: Prochlorperazine Edisylate 10 mg Vial IV PRN (13:50)
[2025-01-02] MEDS ORDERED: NS 1,000 ML IV SCH (13:50)
[2025-01-02 16:22] VITALS: BP 167/78
--- NOTE | 2025-01-02 18:17 | NUR ---
END OF SHIFT REPORT. PATIENT A/O X4. IND IN ROOM. NPO AT MIDNIGHT FOR STRESS TEST TOMORROW. FAMILY AT BEDSIDE UPON ADMIT. PATIENT AWARE AND UNDERSTANDS PLAN. EDUCATION GIVEN ABOUT CHEST PAIN, FALL PREVENTION, AND PLAN OF CARE.
[2025-01-02 19:10] VITALS: BP 142/72
[2025-01-02 23:00] VITALS: BP 142/61
[2025-01-02 23:13] VITALS: BP 209/117
[2025-01-02 23:20] VITALS: BP 196/100
[2025-01-02 23:58] VITALS: BP 142/61
[2025-01-03] VITALS (12 sets, daily range): BP systolic 102–191; BP diastolic 66–92
[2025-01-03] MEDS ORDERED: Morphine Sulfate 4 MG/1 ML Injection IV ONE
--- NOTE | 2025-01-03 08:00 | NUR ---
PT A&OX4, INDEPENDENT IN RM. PT WAS SLEEPING TELE CALLED AND REPORTED HR IN 30S PT WAS ASYMPTOMATIC, APPROXIMATELY 10 MINUTES LATER PT EPORTED SEVERE CP IN LEFT CHEST WALL THAT RADIATED TO L NECK AND OWN L ARM AT 10/10 RAPID REPONSE CALLED. SOB WAS NOTED, PT BRADYCARDIC AND HYPERTENSIVE. DR LAWRENCE AT BEDSIDE 1 NITRO GIVEN PRECIBED AND EFFECTIVELY RELIEVED PAIN. PT SLEPT T/O THE REST OF THE SHIFT AND DENIED ANYFURTHER CP OR SOB.
[2025-01-03 12:26] LABS: Anti-Xa UFH, PHA Monitoring <0.10 IU/mL; Prothrombin Time Results 10.9 Sec (9.7-11.5)
[2025-01-03] MEDS ORDERED: Dose Adjust by Pharmacy XX STA ×2 (12:30→20:29)
[2025-01-03] MEDS ORDERED: Heparin Sodium,Porcine/0.5 NS 500 ML IV SCH (12:35)
[2025-01-03] MEDS ORDERED: Heparin Sodium 5000 Units/ML 1ML MDV IV ONE (12:35)
--- NOTE | 2025-01-03 13:00 | NUR ---
REPORT GIVEN TO INGRID RO RN IN PCU
--- NOTE | 2025-01-03 14:01 | NUR ---
REPORT GIVEN TO INGRID RO RN AT 1255. PATIENT TRANSFERED IN WHEEL CHAIR BY BAKER TO PCU FLOOR. BELONINGS SENT WITH PATIENT, FAMILY AT BEDSIDE.
--- NOTE | 2025-01-03 14:10 | NUR ---
TRANSFER FROM MEDICAL FLOOR RECEIVED REPORT FROM MEDICAL FLOOR NURSE. PATIENT TRANSFERRED TO PCU FOR CHEST PAIN WITH POSITIVE TROPONIN REQUIRING HEPARIN GTT. PATIENT ARRIVES TO UNIT IN WHEELCHAIR IN NOT OBVIOUS DISTRESS. HEPARIN GTT VERIFIED WITH EMANahid AND SETH FRAUSTO. CURRENTLY RUNNING AT 15U/KG/HR @ 28.5ML. C/O 3/10 CP. RECALLS BEING 10/10 DURING STRESS TEST. PATIENT MEDICATED WITH NITRO 0.4MG SL X1. AFTER 5 MIN PAIN CHANGED FROM SHARP PAIN TO DULL PAIN AT 2/10. RHYTHM SINUS ARRYTHMIA WITH BLOCKED PAC @ 49-60. CARDIOLOGY HAS BEEN CONSULTED. PATIENT A/OX4, NO RESP DISTRESS, DENIES NAUSEA. 1415: PATIENT BECAME PALE AND DIAPHORETIC. SBP DROPPED TO 102. HOB LOWERED. PATIENT REMAINS ALERT. NOTIFIED DR MCCARTHY VIA PHONE. 2ND IV ESTABLISHED. MONITORING. 1430: BP IMPROVING. DR GIL IN ROOM FOR EVAL. PATIENT PARTICIPATING IN ASSESSMENT. CP STILL /10. PLAN TO HAVE ANGIO TODAY. WILL KEEP NPO.
--- NOTE | 2025-01-03 15:37 | NUR ---
MD CONTACT DR CEBALLOS IN ROOM FOR EVAL. VSS. MINIMAL CP 1-2. PLAN FOR ANGIO TODAY. SKIN PWD. NO DIAPHORESIS OR SOB.
--- NOTE | 2025-01-03 17:00 | NUR ---
PHYSICIAN CONTACT CARVEDILOL 12.5MG PO BID SHOWING NO PARAMETERS FOR HEART RATE OR BLOOD PRESSURE. HR 53-63, SBP >120. DR CEBALLOS CONTACTED. ORDERS RECEIVED. COREG CHANGED TO 3.125MG PO BID. FIRST DOSE NOW.
[2025-01-03] MEDS ORDERED: NS 1,000 ML IV SCH (17:30)
[2025-01-04] VITALS (15 sets, daily range): BP systolic 115–186; BP diastolic 58–95
[2025-01-04 04:38] LABS: Hematocrit 37.0 % (37.0-53.0); Hemoglobin 12.6 g/dL (13.5-17.5); Platelet Count 189 K/mm3 (150-400)
--- NOTE | 2025-01-04 04:38 | NUR ---
SHIFT SUMMARY - A/OX4, PLEASANT AND COOPERATIVE WITH CARE. DENIES PAIN. ON ROOM AIR, SATS ABOVE 95%. BREATHING IS EQUAL AND UNLABORED. ON CONTINUOUS CARDIAC TELEMETRY, SINUS ARRHYTHMIA WITH BLOCKED PAC'S, ON HEP GTT AT 12U/KG/HR. PT DENIES ANY CHEST PAIN/PRESSURE/TIGHTNESS. NPO AT MIDNIGHT FOR ANGIOGRAM THIS AM. PT EDUCATED ON RISK FOR BLEEDING AND DEMONSTRATED UNDERSTANDING TO USE CALL LIGHT FOR STAFF ASSISTANCE TO BATHROOM. SBA FOR LINE MANAGEMENT. NO ACUTE EVENTS OVERNIGHT.
[2025-01-04] MEDS ORDERED: Clarify Drug Order XX ONE (05:30)
[2025-01-04] MEDS ORDERED: NiCARdipine HCL 1,000 MCG/5 ML SYR ONE (07:10)
[2025-01-04] MEDS ORDERED: Nitroglycerin 2 MG/20 ML BTL ONE (07:10)
[2025-01-04] MEDS ORDERED: Heparin Sodium 1000 Units/ML 10ML MDV ONE ×2 (07:10→08:12)
[2025-01-04] MEDS ORDERED: NS 1,000 ML IV ONE ×2 (07:10→07:15)
[2025-01-04] MEDS ORDERED: NS 250 ML IV ONE (07:10)
[2025-01-04] MEDS ORDERED: FentaNYL Citrate 50 MCG/ML 2 ML Injection ONE (07:14)
[2025-01-04] MEDS ORDERED: Midazolam HCl 1MG / ML 2ML Vial ONE (07:15)
--- NOTE | 2025-01-04 07:34 | NUR ---
ASSUMPTION NOTE: THIS RN TO ASSUME CARE OF PATIENT. PATIENT IS AWAKE IN BED AND [facility] CAME TO TAKE HIM TO ANGIOGRAM. VITAL SIGNS TAKEN PRIOR TO LEAVING AND PATIENT STABLE. DENIED ANY CURRENT CHEST PAIN.
[2025-01-04] MEDS ORDERED: NS 1,000 ML IV SCH (09:00)
[2025-01-04] MEDS ORDERED: Albuterol 2.5 MG/3 ML VIAL INH PRN (10:25)
--- NOTE | 2025-01-04 11:12 | NUR ---
MD CONTACTED: THIS RN CALLED MD REGARDING PATIENT REQUESTING AN ALBUTEROL TREATMENT HE FELT WHEEZY AND SLIGHTLY SHORT OF BREATH. MD GAVE VERBAL ORDER AND RT CAME BY TO TREAT.
--- NOTE | 2025-01-04 13:33 | NUR ---
MD ROUNDED: MD ROUNDED AND SPOKE WITH PATIENT AND FAMILY AT BEDSIDE. PATIENT AWARE PLAN WILL BE TO STAY THE NIGHT AND POSSIBLY DISCHARGE TOMORROW.
--- NOTE | 2025-01-04 16:56 | NUR ---
SHIFT SUMMARY: PATIENT IS ALERT AND ORIENTED X4 & COOPERATIVE WITH HIS CARE, IS ABLE TO MAKE NEEDS KNOWN & USES CALL LIGHT APPRORPAITELY. SATTING >92% ON ROOM AIR. PATIENT HAD ANIGOGRAM DONE TODAY WITH ONE STENT PLACED TO THE MID LAD, SEE ANGIO NOTES FO RMORE INFORMATION. RIGHT RADIAL ACCESS SITE IS RECOVERED WITH A CLEAR TEGADERM ON IT. PATIENT REPOERTED OF WHEEZING EPISODES TODAY AND ALBUTEROL TREATMENTS WERE ADDED TO HIS EMAR HE HAS A RESCUE INHALER AT HOME. FAMILY AT BEDSIDE THROUGHOUT THE DAY AND TOOK HIS STENT CARD WITH HER. FLUIDS WERE STARTED AFTER ANGIOGRAM TODAY AND HAVE BEEN DISCONTINUED. PATIENT IS SITTING UP IN BED AWAIITNG DINNER, CALL LIGHT WITHIN REACH, BED IN LOWEST LOCKED POSIITON & STATING NOTHING ELSES IS NEEDED AT THIS TIME.
[2025-01-05 03:51] LABS: Hematocrit 36.3 % (37.0-53.0); Hemoglobin 12.3 g/dL (13.5-17.5); Mean Corpuscular HGB Conc 33.9 g/dL (31.5-36.5); Mean Corpuscular Volume 90 fL (80-100); NRBC ABSOLUTE 0.00 K/mm3 (0.00-0.02); NRBC Auto 0.0 /100 WBC (0.0-0.2); Platelet Count 201 K/mm3 (150-400); RDW Coefficient Variation 13.6 % (11.7-14.2); RDW Standard Deviation 44.7 fL (35.1-46.3)
[2025-01-05 04:12] LABS: Anion Gap 7.0 mmol/L (3-11); Blood Urea Nitrogen 38.0 mg/dL (8-24); CO2, Blood 25.0 mmol/L (21-32); Calcium, Blood 8.7 mg/dL (8.5-10.1); Chloride, Blood 111.0 mmol/L (98-108); Creatinine, Blood 2.3 mg/dL (0.60-1.20); Glucose, Blood 91.0 mg/dL (70-99); Potassium, Blood 4.4 mmol/L (3.5-5.5); Sodium, Blood 139.0 mmol/L (136-145)
[2025-01-05 04:36] VITALS: BP 124/58
--- NOTE | 2025-01-05 06:00 | NUR ---
SHIFT SUMMARY NO ACUTE CHANGES THIS SHIFT. PT A&OX4, SP02>90% ON RA. VSS. EKG DONE THIS AM, SEE CHART. R RADIAL RECOVERED, NO BRUISING, NO HEMATOMA. DENIES PAIN. INDEPENDENT IN ROOM. SLEPT MOST OF NIGHT. EAGER TO GO HOME IN AM. CALL LIGHT IN REACH.
[2025-01-05 08:40] VITALS: BP 153/85
[2025-01-05] MEDS ORDERED: EFFIENT5 MG PO (10:40)
[2025-01-05] MEDS ORDERED: ALBU90OI INH (10:43)
--- NOTE | 2025-01-05 13:36 | NUR ---
DC 1115 PT DISCHARGED IN STABLE CONDITION. PATIENT BROUGHT OUT IN WHEELCHAIR, PICKED UP PATIENT. PATIENT LEFT WITH ALL BELONGINGS. THIS RN DISCUSSED IN DETAIL WITH PATIENT AND ACTIVE MEDICATION LIST. PATIENT TO CLOTH DESIZING RANGE TENDER PRASUGREL FROM [facility]. [facility] CONTACTED AND ABLE TO FILL PRASUGREL RX BY TODAY, SPOKE WITH PHARMACIST TO VERIFY.
== END 2025-01-05 11:15 | disposition home or self-care (01) | DRG 321 ==
LOC: ER 11:07 → MEDS 11:08 → PCU 01-03 14:02
PROVIDERS: Emergency Medicine; Internal Medicine Cardiovascular Disease; ADMIT Internal Medicine
PROC: 027034Z Dilation of Coronary Artery, One Artery with Drug-eluting Intraluminal Device, Percutaneous Approach (ICD-10-PCS; principal; 2025-01-04)
PROC: B2111ZZ Fluoroscopy of Multiple Coronary Arteries using Low Osmolar Contrast (ICD-10-PCS; 2025-01-04)
DX: T82.867A Thrombosis due to cardiac prosthetic devices, implants and grafts, initial encounter (principal); I21.A9 Other myocardial infarction type; E27.40 Unspecified adrenocortical insufficiency; N18.4 Chronic kidney disease, stage 4 (severe); I13.0 Hypertensive heart and chronic kidney disease with heart failure and stage 1 through stage 4 chronic kidney disease, or unspecified chronic kidney disease; I50.22 Chronic systolic (congestive) heart failure; I25.10 Atherosclerotic heart disease of native coronary artery without angina pectoris; M10.9 Gout, unspecified; K29.70 Gastritis, unspecified, without bleeding; I35.0 Nonrheumatic aortic (valve) stenosis; E78.00 Pure hypercholesterolemia, unspecified; K21.9 Gastro-esophageal reflux disease without esophagitis; M06.9 Rheumatoid arthritis, unspecified; I25.2 Old myocardial infarction; Z86.73 Personal history of transient ischemic attack (TIA), and cerebral infarction without residual deficits; Z86.0100 Personal history of colon polyps, unspecified; Z79.82 Long term (current) use of aspirin; Z79.02 Long term (current) use of antithrombotics/antiplatelets; Z87.891 Personal history of nicotine dependence; Z79.52 Long term (current) use of systemic steroids
CPT/HCPCS: 36415; 71045; 76937; 78452; 80048; 80053; 83690; 83880; 84484; 85014; 85018; 85025; 85027; 85049; 85347; 85520; 85610; 85730; 93005; 93010; 93017; 93454; 94640; 94664; 94762; 96365; 96366; 96375; 96376; 99152; 99153; 99285-25; A9270; A9500; C1725; C1769; C1874; C1887; C1894; C8929; C9600; G0378; J0706; J1644; J2250; J2270; J2785; J3010; J7030; J7050; Q9957; Q9967